=== PATIENT | female | born 1945 | race Caucasian/White ===

== ENCOUNTER 2017-03-30 12:43 | Outpatient (CLI) ==
[2016-04-08 13:01] VITALS: BMI 29.9
--- NOTE | 2017-03-30 13:11 | CT ---
EXAM: CT left knee without contrast. HISTORY: Left knee osteoarthritis. Left knee pain. COMPARISON: Radiograph 04/08/2016. TECHNIQUE: Multiple axial images of the left knee were obtained without intravenous contrast. Image s were reformatted in the sagittal and coronal planes. FINDINGS: Bone mineralization is normal. No fracture or dislocation identified. Mild tricompartmen jamie joint marginal osteophyte formation noted with mild medial and patellofemoral compartment joint s pace narrowing. No erosive changes are seen. Chondrocalcinosis noted in the knee joint. There is a small amount of fluid in the knee joint with some peripheral calcifications present. Atheroscleroti c calcifications are present. No localized soft tissue abnormality is seen. IMPRESSION: 1. Mild osteoarthritis. 2. Small joint effusion. 3. Chondrocalcinosis.
== END 2017-03-30 12:44 | disposition home or self-care (01) ==
LOC: RAD 12:43
PROVIDERS: ATTEND Emergency Medicine
DX: M17.12 Unilateral primary osteoarthritis, left knee (principal)

== ENCOUNTER 2017-04-13 08:03 | Outpatient (CLI) ==
[2016-04-08 13:01] VITALS: BMI 29.9
--- NOTE | 2017-04-13 11:50 | MAMMO ---
EXAM: Digital screening mammogram with tomosynthesis HISTORY: Screening COMPARISON: 04/26/2015 FINDINGS: Digital MLO and CC views of the right and left breast were performed. Tomosynthesis was performed. Computer aided detection was utilized. There are scattered fibroglandular densities. Th ere is no evidence for mass, asymmetry, distortion, or suspicious calcifications in either breast. IMPRESSION: 1. No evidence of malignancy in the right or left breast. 2. Annual screening mammogram is recommended in one year. BIRADS category 1, negative examination
== END 2017-04-13 08:04 | disposition home or self-care (01) ==
LOC: RAD 08:03
PROVIDERS: ATTEND Emergency Medicine
DX: Z12.31 Encounter for screening mammogram for malignant neoplasm of breast (principal); E78.5 Hyperlipidemia, unspecified; F32.9 Major depressive disorder, single episode, unspecified; J44.9 Chronic obstructive pulmonary disease, unspecified
CPT/HCPCS: 36415; 77067; 80053; 80061; 84443; 85025

== ENCOUNTER 2017-05-31 11:00 | Outpatient (RCR) ==
[2016-04-08 13:01] VITALS: BMI 29.9
--- NOTE | 2017-05-24 13:20 | RS.OPPTEV2 ---
Date of Note: 05/23/17 Visit #: 1 Date of Evaluation: 05/23/17 Payer Source: MEDICARE Treatment Diagnosis: Left knee pain History of Condition/Mechanism of Injury:: Patient reports progressive left knee pain. Prior Level of Function.....Patient was independent with: ADL's, Self Care, Work /Vocation, Caregiving, Ambulation/Mobility, Community Integration/Access Functional Limitations: ADL's, Standing, Squatting, Ambulation, Community Access /Integration Current Subjective/complaints:: Patient reports left knee pain. Reports swelling in the left knee, which limits her ROM. States she received an injection in the knee recently and she has not felt much benefit at this time. States she has had to change the way she does things because of her left knee limitation. She now takes showers, because she cannot get in and out of a bath tub. Reports difficulty ascending/descending stairs. She was diagnosed with RA several years ago. States she is hoping to work out at [employer] in town, but is uneasy about what activities she should avoid. Treatment Side (optional): Left Medical History Medical History: Arthritis (knees, back, right hip) Medical History Comments:: Rheumatoid Arthritis, emphysema Smoking Status: Former smoker Hx Home Medications: Lipitor, wellbutrin, Patient's Goals: Her goal is to get relief of left knee pain. Pain Assessment - Pain Description Pain Location: left knee joint Current Pain Intensity: 5/10 Worst Pain Intensity: 10/10 Functional Outcome Measure LE Functional Scale: 41 (41/80=48.75% impairment) - G Codes & Severity Modifier G Codes & Modifier: MOb current CK. MOb goal CI Source of G Code score: LE functional scale Observation - Observation Inspection: Left knee presents to be swollen upon observation, compared to the right knee. Standing without shoes demonstrates moderate arch bilaterally and normal knee alignment. Girth Measurement Lower: Superior pole of patella: left 18 3/4 cm, right 18 cm Gait - Gait Pattern Gait Comments: Patient ambulates without an assistive device, with decreased stance on the left LE. Demonstrates decreased knee flexion during swing phase. - Left Knee ROM Left Knee Extension: -3 degrees from full extension Left Knee Flexion: 99 (degrees AROM) Knee ROM Limitations: Soft Tissue Tightness - Right Knee ROM Right Knee Extension: full extension Right Knee Flexion: 135 (degrees AROM) - Left Knee Strength Left Knee Extension: 4- Good- Left Knee Flexion: 4- Good- Comments: Left hip strength 4 to 4+/5 throughout. - Right Knee Strength Right Knee Extension: 5 Normal Right Knee Flexion: 5 Normal Comments: Right hip 4+ to 5/5 throughout. - Special Tests Knee Anterior Drawer Test: Negative Left, Negative Right Knee Posterior Drawer Test: Negative Left, Negative Right Knee Valgus Stress Test: Negative Left, Negative Right Knee Varus Stress Test: Negative Left, Negative Right Sensation - Sensation Right Lower Extremity: Intact/Normal Left Lower Extremity: Intact/Normal Additional Comments: Additional Comments: Right SLR to 50-55 degrees, Left SLR to 40-45 degrees in supine. Interventions - Exercise/Activities/Manual Therapy Exercises/Activities: Patient instructed in exercises for home: HS stretch in supine and in standing, SLR, SAQ's, and Standing HS curls. Discussed activites to avoid, such as twisting with the foot planted, Total minutes of Exercise: 10 mins Manual Therapy: Na HOME EXERCISE PROGRAM: HS stretch in supine and in standing, SLR, SAQ's, and Standing HS curls. - Charges Timed Code Treatment Minutes: 10 mins Total Treatment Time: 50 mins Procedures billed for this date of service:: EVAL Low EVALUATION COMPLEXITY LEVEL EVALUATION COMPLEXITY LEVEL: HISTORY: Low (no prior knee surgery), EXAM OF BODY SYSTEMS: Low (LE ROM and strength), CLINICAL PRESENTATION: Low, CLINICAL DECISION MAKING: Low Assessment Assessment: Patient presents to therapy with a diagnosis of left knee pain. She exhibits limited left knee ROM and weakness of the hip and knee musculature. She reports limited activities with ambulation and ADL's due to knee pain and joint restriction. She demonstrates potential to gain functional left knee AROM and strength to tolerate activities with minimal left knee discomfort. Patient Education: Education of diagnosis, Body/Joint mechanics, Home Exercise Program, Home Safety, Activity Modification, Education of Plan of Care Rehab Potential: Good Short Term Goals Goal #1: Pt compliant with HEP. Goal to be met by: 06/03/17 Goal #2: Left knee AROM 0 to 120 degrees flexion. Goal to be met by: 06/07/17 Goal #3: Left quad strength increased to 4+/5. Goal to be met by: 06/07/17 Escort Blind Goals Goal #1: Pt independent in HEP and knows to cont. ex's following D/C. Goal to be met by: 06/13/17 Goal #2: Pt able to perform daily activities with minimal knee pain. Goal to be met by: 06/13/17 Goal #3: Pt to demo. understanding of activities to avoid to protect left knee joint Goal to be met by: 06/13/17 Plan - Treatment to be Provided Procedures: Therapeutic Exercises, Therapeutic Activity, Patient Education Modalities: Cryotherapy, Hot Packs - Treatment Plan Frequency: 2 X week Duration: 2 weeks ORDER # VISITS AND/OR THROUGH DATE: 06/13/17 - Treatment Code (1) Knee pain Code(s): M25.569 - PAIN IN UNSPECIFIED KNEE Qualifiers: Chronicity: unspecified Laterality: left Qualified Code(s): M25.562 - Pain in left knee (2) Knee stiffness Qualifiers: Laterality: left Qualified Code(s): M25.662 - Stiffness of left knee, not elsewhere classified
--- NOTE | 2017-05-25 11:54 | RS.OPPTDN ---
Subjective Date of Note: 05/25/17 Visit #: 2 Date of Evaluation: 05/23/17 Payer Source: MEDICARE Treatment Diagnosis: Left knee pain Current Subjective/complaints:: Patient reports she is walking better today. States she is workingon initial HEP as instructed. Pain Assessment - Pain Description Current Pain Intensity: mod Interventions - Exercise/Activities/Manual Therapy Exercises/Activities: Assisted HS stretch and left knee flexion in supine. SLR, SLR/VMO, SAQ's, quad sets, and ham sets. Isometric hip add with ball, with feet in neutral and feet wide for increased IR. Isometric ankle inversion with quad sets. Yellow theraband for ham curl. In sitting, passive knee flexion, isometric ham set, and yellow theraband for ham curl. Began leg press with 30# and limited range. Elliptical 1 minute for safety instruction. Back to mat table for additonal hamstring stretching. Patient education of dx, joint mechanics, safety and progression of HEP. Patient given copy of new exercises. Total minutes of Exercise: 40mins Manual Therapy: Na HOME EXERCISE PROGRAM: HS stretch in supine and in standing, SLR, SAQ's, and Standing HS curls. Quad sets, isometric hip add and isometric ankle inversion, both with ball. - Objective Findings Observations,measurements,etc.: No gait deviation noted today. - Charges Timed Code Treatment Minutes: 40mins Total Treatment Time: 42mins Procedures billed for this date of service:: EX3 Assessment: Patient motivated to work on HEP. Demos improvement in gait today. Patient Education: Education of diagnosis, Body/Joint mechanics, Home Exercise Program, Home Safety, Activity Modification Patient demonstrates compliance with HEP?: Yes Short Term Goals Goal #1: Pt compliant with HEP. Goal to be met by: 06/03/17 Progress towards Goal:: Progressing Goal #2: Left knee AROM 0 to 120 degrees flexion. Goal to be met by: 06/07/17 Progress towards Goal:: Progressing Goal #3: Left quad strength increased to 4+/5. Goal to be met by: 06/07/17 Progress towards Goal:: Progressing Lettuce Trimmer Goals Goal #1: Pt independent in HEP and knows to cont. ex's following D/C. Goal to be met by: 06/13/17 Goal #2: Pt able to perform daily activities with minimal knee pain. Goal to be met by: 06/13/17 Goal #3: Pt to demo. understanding of activities to avoid to protect left knee joint Goal to be met by: 06/13/17 Plan PLAN OF CARE EXPIRES ON:: 06/13/17 ORDER # VISITS AND/OR THROUGH DATE: 06/13/17 PLAN: Progress exercise to increase ROM, strength, and functional activity level.
--- NOTE | 2017-05-29 12:08 | RS.OPPTDN ---
Subjective Date of Note: 05/29/17 Visit #: 3 Date of Evaluation: 05/23/17 Payer Source: MEDICARE Treatment Diagnosis: Left knee pain Current Subjective/complaints:: Patient reports less swelling in the left knee today. States she is working on HEP as instructed. States she is planning on starting back to the gym 3 days per week. Agrees to work on low impact activities. Pain Assessment - Pain Description Pain Location: Left knee Pain Description: Aching Current Pain Intensity: mild Interventions - Exercise/Activities/Manual Therapy Exercises/Activities: Assisted HS stretch and left knee flexion in supine. Added 2# to SLR and SAQ's. SLR/VMO no weights. Quad sets, and ham sets. Isometric hip add with ball, with feet in neutral and feet wide for increased IR. Isometric ankle inversion with quad sets. Yellow theraband for ham curl, ankle df, hip add and hip abd with full knee extension. In sitting, passive knee flexion, isometric ham set, and yellow theraband for ham curl, 3s/10reps. Increased leg press to 45# and limited range. Ended with 7 mins stationary bike. Discussed patient education of joint mechanics, safety and progression of HEP. Total minutes of Exercise: 38mins/45mins Manual Therapy: Na HOME EXERCISE PROGRAM: HS stretch in supine and in standing, SLR, SAQ's, and Standing HS curls. Quad sets, isometric hip add and isometric ankle inversion, both with ball. - Objective Findings Observations,measurements,etc.: Demos good gait pattern without deviation noted. - Charges Timed Code Treatment Minutes: 38mins Total Treatment Time: 45mins Procedures billed for this date of service:: EX3 Assessment: Patient progressing with strengthening exericse and planning to return to modified workouts at gym. Patient Education: Body/Joint mechanics, Home Exercise Program, Home Safety, Activity Modification Patient demonstrates compliance with HEP?: Yes Short Term Goals Goal #1: Pt compliant with HEP. Goal to be met by: 06/03/17 Progress towards Goal:: Met Goal #2: Left knee AROM 0 to 120 degrees flexion. Goal to be met by: 06/07/17 Progress towards Goal:: Partially Met Comments:: Passive flexion to 120 degrees, Active extension to neutral. Goal #3: Left quad strength increased to 4+/5. Goal to be met by: 06/07/17 Progress towards Goal:: Partially Met Agriculture Intern Goals Goal #1: Pt independent in HEP and knows to cont. ex's following D/C. Goal to be met by: 06/13/17 Progress towards goal: Progressing Goal #2: Pt able to perform daily activities with minimal knee pain. Goal to be met by: 06/13/17 Progress towards goal: Progressing Goal #3: Pt to demo. understanding of activities to avoid to protect left knee joint Goal to be met by: 06/13/17 Progress towards goal: Progressing Plan PLAN OF CARE EXPIRES ON:: 06/13/17 ORDER # VISITS AND/OR THROUGH DATE: 06/13/17 PLAN: Progress exericse to increase patients functional activity level.
--- NOTE | 2017-05-31 11:56 | RS.OPPTDN ---
Subjective Date of Note: 05/31/17 Visit #: 4 Date of Evaluation: 05/23/17 Payer Source: MEDICARE Treatment Diagnosis: Left knee pain Current Subjective/complaints:: Patient reports she feels stronger and will be able to continue HEP. Reports some joint tightness and feels mild swelling continues due to weather changes. Pain Assessment - Pain Description Pain Location: Left knee Current Pain Intensity: mild Interventions - Exercise/Activities/Manual Therapy Exercises/Activities: Assisted HS stretch and left knee flexion in supine. Added 2# to SLR. Witheld SAQ's to avoid aggravating knee. SLR/VMO added 1#. Quad sets, and ham sets. Isometric hip add with ball, with feet in neutral and feet wide for increased IR. Isometric ankle inversion with quad sets. Increased to red theraband for ham curl, ankle df, hip add and hip abd with full knee extension. In sitting, passive knee flexion, isometric ham set, and red theraband for ham curl, 3s/10reps. Discussed patient education of joint mechanics, safety and progression of HEP. Also reviewed safety with activity upon returning to gym. Total minutes of Exercise: 30mins Manual Therapy: Na HOME EXERCISE PROGRAM: HS stretch in supine and in standing, SLR, SAQ's, and Standing HS curls. Quad sets, isometric hip add and isometric ankle inversion, both with ball. - Objective Findings Observations,measurements,etc.: Left knee flexion 130 degrees and extension to neutral. - Charges Timed Code Treatment Minutes: 30mins Total Treatment Time: 35mins Procedures billed for this date of service:: EX2 Assessment: Patient has progressed well and met all treatment goals. She is independent with HEP and is motivated to continue and return to light activity at gym. Patient Education: Education of diagnosis, Body/Joint mechanics, Home Exercise Program, Home Safety, Activity Modification, Education of Plan of Care Comments: Finalized all patient eudcation of dx, mechanics, safety, and HEP. Patient demonstrates compliance with HEP?: Yes Short Term Goals Goal #1: Pt compliant with HEP. Goal to be met by: 06/03/17 Progress towards Goal:: Met Goal #2: Left knee AROM 0 to 120 degrees flexion. Goal to be met by: 06/07/17 Progress towards Goal:: Met Goal #3: Left quad strength increased to 4+/5. Goal to be met by: 06/07/17 Progress towards Goal:: Met Mcfp Goals Goal #1: Pt independent in HEP and knows to cont. ex's following D/C. Goal to be met by: 06/13/17 Progress towards goal: Met Goal #2: Pt able to perform daily activities with minimal knee pain. Goal to be met by: 06/13/17 Progress towards goal: Met Goal #3: Pt to demo. understanding of activities to avoid to protect left knee joint Goal to be met by: 06/13/17 Progress towards goal: Met Plan PLAN OF CARE EXPIRES ON:: 06/13/17 ORDER # VISITS AND/OR THROUGH DATE: 06/13/17 PLAN: Discharge with HEP as patient has completed POC.
== END 2017-06-06 ==
PROVIDERS: ATTEND Orthopaedic Surgery
DX: M25.562 Pain in left knee (principal)

== ENCOUNTER 2017-07-25 11:00 | Outpatient (CLI) ==
[2017-04-13 08:11] VITALS: BMI 29.9
== END 2017-07-25 11:01 | disposition home or self-care (01) ==
LOC: RHC-LAB 11:00
PROVIDERS: ATTEND Emergency Medicine
DX: E78.5 Hyperlipidemia, unspecified (principal); F32.9 Major depressive disorder, single episode, unspecified; J44.9 Chronic obstructive pulmonary disease, unspecified
CPT/HCPCS: 36415; 80053; 80061; 84443; 85025

== ENCOUNTER 2017-08-20 17:49 | Emergency (ER) ==
[2017-08-20 17:54] VITALS: BP 157/88; TEMP 98.7; BMI 30.1
[2017-08-20] MEDS ORDERED: DECADRON 4 MG/ML SDV IM STA (19:42)
[2017-08-20] MEDS ORDERED: BENADRYL IM STA (19:42)
--- NOTE | 2017-08-20 19:44 | ED.PDOC ---
General ED Provider: Dr. GHAZAL HAMILTON Chief Complaint: Rash Stated Complaint: Patient been having rash , all over the body, for 3 weeks, they come and go. now started hurting right heel. no injury Time Seen by Physician: 19:43 Mode of Arrival: Walk-In Information Source: Patient Primary Care Provider: GHAZAL HAMILTON[facility] Nursing and Triage Documentation Reviewed and Agree: Yes Reviewed sepsis parameters & appropriate labs ordered?: No System Inflammatory Response Syndrome: Not Applicable Sepsis Protocol: For patient's 13 years and over: Temp is 96.8 and below OR 101 and greater Pulse >90 BPM Resp >20/minute Acutely Altered Mental Status Are patient's symptoms suggestive of a new infection, such as: -Pneumonia -Skin, Soft Tissue -Endocarditis -UTI -Bone, Joint Infection -Implantable Device -Acute Abdominal Infection -Wound Infection -Meningitis -Blood Stream Catheter Infection -Unknown Skin Complaint Exam - Skin Rash/Itching Complaint/Exam Symptoms Are: Still present Initial Severity: Mild Current Severity: Mild Potential Exposures: Reports: Other Aggravating: Reports: None Alleviating: Reports: None Associated Signs and Symptoms: Denies: Difficulty breathing, Fever, Chills Skin Findings: Present: Lesions Differential Diagnoses: Allergic Reaction Review of Systems - Review Of Systems Constitutional: Reports: No symptoms Eyes: Reports: No symptoms Ears, Nose, Mouth, Throat: Reports: No symptoms Respiratory: Reports: No symptoms Cardiac: Reports: No symptoms GI: Reports: No symptoms : Reports: No symptoms Musculoskeletal: Reports: No symptoms Skin: Reports: Rash Neurological: Reports: No symptoms Endocrine: Reports: No symptoms Hematologic/Lymphatic: Reports: No symptoms All Other Systems: Reviewed and Negative Past Medical History - Past Medical History Previously Healthy: Yes Endocrine: Reports: None Cardiovascular: Reports: None Respiratory: Reports: None Hematological: Reports: None Gastrointestinal: Reports: None Genitourinary: Reports: UTI Neuro/Psych: Reports: Depression Musculoskeletal: Reports: None Cancer: Reports: None Last Menstrual Period: none - Surgical History General Surgical History: Reports: None - Family History Family History: Reports: None - Social History Smoking Status: Former smoker Hx Substance Use: No Alcohol Screening: Occasionally Physical Exam - Physical Exam Appearance: Well-appearing, No pain distress, Well-nourished Eyes: JANINA, EOMI, Conjunctiva clear ENT: Ears normal, Nose normal, Oropharynx normal Respiratory: Airway patent, Breath sounds clear, Breath sounds equal, Respirations nonlabored Cardiovascular: RRR, Pulses normal, No rub, No murmur GI/: Soft, Nontender, No masses, Bowel sounds normal, No Organomegaly Musculoskeletal: Normal strength (rt heel is tender.), ROM intact, No edema, No calf tenderness Skin: Warm, Dry, Normal color Neurological: Sensation intact, Motor intact, Reflexes intact, Cranial nerves intact, Alert, Oriented Psychiatric: Affect appropriate, Mood appropriate Interpretation - Radiology Interpretation Radiology Interpretation By: ED Physician Radiology Results: Negative Critical Care Note - Critical Care Note Total Time (mins): 20 Course - Course Hematology/Chemistry: 08/20/17 19:50 08/20/17 19:50 Orders, Labs, Meds: Lab Review 08/20/17 08/20/17 19:50 19:50 WBC 10.56 H RBC 4.33 Hgb 13.0 Hct 39.0 MCV 90.1 MCH 30.0 MCHC 33.3 RDW Coeff of [place] 13.6 Plt Count 290 Immature Gran % (Auto) 0.2 Neut % (Auto) 47.7 Lymph % (Auto) 40.2 [place] % (Auto) 6.2 Eos % (Auto) 5.1 Baso % (Auto) 0.6 Immature Gran # (Auto) 0.0 Neut # (Auto) 5.1 Lymph # (Auto) 4.2 H [place] # (Auto) 0.7 Eos # (Auto) 0.5 Baso # (Auto) 0.1 Sodium 140 Potassium 4.3 Chloride 108 H Carbon Dioxide 22 L Anion Gap 14.3 BUN 16 Creatinine 1.05 Estimated GFR (MDRD) 52.00 BUN/Creatinine Ratio 15.23 Glucose 90 Calcium 9.3 Total Bilirubin 0.2 AST 23 ALT 29 Alkaline Phosphatase 104 Total Protein 7.0 Albumin 3.4 Globulin 3.6 Albumin/Globulin Ratio 0.94 Orders Category Date Time Status CBC W/ AUTO DIFF Stat LAB 08/20/17 19:50 Completed CMP [COMPREHENSIVE METABOLIC PANEL] Stat LAB 08/20/17 19:50 Completed Dexamethasone 4 mg/ml Inj [Decadron 4 mg/ml Sdv] MEDS 08/20/17 19:42 Discontinued 4 mg IM ONCE STA Diphenhydramine Inj [Benadryl] MEDS 08/20/17 19:42 Discontinued 25 mg IM ONCE STA FOOT, RIGHT 3 VIEWS Stat RADS 08/20/17 19:37 Taken Medications Discontinued Medications Generic Name Dose Route Start Last Admin Trade Name Nghia PRN Reason Stop Dose Admin Dexamethasone Sodium Phosphate 4 mg 08/20/17 19:42 08/20/17 20:12 Decadron 4 Mg/Ml Sdv IM 08/20/17 19:43 4 mg ONCE STA Administration Diphenhydramine HCl 25 mg 08/20/17 19:42 08/20/17 20:11 Benadryl IM 08/20/17 19:43 25 mg ONCE STA Administration Vital Signs: Temp Pulse Resp BP Pulse Ox 08/20/17 17:49 98.7 F 103 H 16 157/88 H 96 Departure - Departure Time of Disposition: 20:52 Disposition: HOME SELF-CARE Discharge Problem: Pruritic rash Heel spur Qualifiers: Laterality: right Qualified Code(s): M77.31 - Calcaneal spur, right foot Instructions: Dermatitis (ED) Condition: Stable Pt referred to PMD for follow-up: Yes IPMP verified?: No Additional Instructions: Take medication with food Increase Hydration Tylenol prn Prescriptions: Clindamycin HCl 300 mg PO TID #15 capsule Hydroxyzine HCl [Atarax] 25 mg PO BID #30 tab Prednisone 10 mg PO BIDWM #14 tablet Allergies/Adverse Reactions: Allergies codeine Adverse Reaction (Verified 08/20/17 17:57) diazepam [From Valium] Adverse Reaction (Verified 08/20/17 17:57) hydrocodone bitartrate [From Lortab] Adverse Reaction (Verified 08/20/17 17:57) Home Medications: Ambulatory Orders Calcium Carbonate/Vitamin D3 [Calcium 600 + Vit D 400 Softgl] 1 cap PO DAILY Albuterol Sulfate [Proair Hfa] 8.5 gm IH DIRECTED PRN 11/18/15 Potassium Gluconate [Potassium] 99 mg PO d 03/28/17 Azelastine HCl [Astelin 0.1%] 1 spray NS BID 08/20/17 Clindamycin HCl 300 mg PO TID #15 capsule 08/20/17 Hydroxyzine HCl [Atarax] 25 mg PO BID #30 tab 08/20/17 Prednisone 10 mg PO BIDWM #14 tablet 08/20/17 Disposition Discussed With: Patient
--- NOTE | 2017-08-21 07:41 | DI ---
EXAM: Three views of the right foot HISTORY: Pain. COMPARISON: None FINDINGS: There is mild degenerative change of the first MTP joint. There is minimal degenerative ch slime of the IP joint of the great toe. There is mild narrowing and degenerative change in the midfoo t. The arch is maintained. Small calcaneal spurs are present. The soft tissues are unremarkable. IMPRESSION: 1. No acute abnormality or displaced fracture of the right foot. 2. Scattered degenerative disease of the right foot.
== END 2017-08-20 21:15 | disposition home or self-care (01) ==
LOC: ED 17:49
DX: R22.1 Localized swelling, mass and lump, neck (principal); L29.9 Pruritus, unspecified; M77.31 Calcaneal spur, right foot
CPT/HCPCS: 36415; 80053; 85025; 96372; 99283

== ENCOUNTER 2017-11-21 10:50 | Outpatient (CLI) | END 2017-11-21 10:51 | disposition home or self-care (01) | LOC: RHC-LAB 10:50 | PROVIDERS: ATTEND Emergency Medicine | DX: F32.9 Major depressive disorder, single episode, unspecified (principal); E78.5 Hyperlipidemia, unspecified; J44.9 Chronic obstructive pulmonary disease, unspecified; Z78.0 Asymptomatic menopausal state | CPT/HCPCS: 36415; 80053; 80061; 84443; 85025 ==

== ENCOUNTER 2017-11-27 10:44 | Outpatient (CLI) ==
--- NOTE | 2017-11-27 11:58 | DEXA ---
EXAM: Bone densitometry. History: Asymptomatic menopausal state. Findings: Evaluation of the lumbar spine reveals a total bone mineral density of 1.213 grams per centimeter squ ared with T-score of 0.3. Evaluation of the left hip reveals a total bone mineral density of 0.896 grams per centimeter squared with T-score of negative 0.9. Evaluation of the right hip reveals a total bone mineral density of 0.909 grams per centimeter square d with T-score of negative 0.8. Impression: Normal bone mineral density of the lumbar spine and bilateral hips
== END 2017-11-27 10:45 | disposition home or self-care (01) ==
LOC: RAD 10:44
PROVIDERS: ATTEND Emergency Medicine
DX: Z78.0 Asymptomatic menopausal state (principal)

== ENCOUNTER 2018-01-17 10:00 | Emergency (ER) ==
[2018-01-17 10:14] VITALS: BP 172/89; TEMP 69.9; BMI 28.9
--- NOTE | 2018-01-17 10:51 | CT ---
EXAM: CT of the head without contrast History: Dizziness. Technique: Multiplanar CT images through the head were obtained without the administration of IV con trast Findings: The visualized paranasal sinuses and mastoid air cells are clear in general. No acute kaiden varial abnormality. Intracranially the ventricular and cisternal spaces are normal in size, shape and configuration for a patient of this age. No dominant mass or midline shift. No hydrocephalous. No acute intracranial hemorrhage or abnormal extraaxial fluid collections. Impression: No acute intracranial process
--- NOTE | 2018-01-17 11:40 | ED.PDOC ---
General ED Provider: Dr. AKASH LOFTON Chief Complaint: Dizziness Stated Complaint: dizziness Time Seen by Physician: 10:00 Mode of Arrival: Walk-In Information Source: Patient Exam Limitations: No limitations Primary Care Provider: DILEEP GRAHAM Nursing and Triage Documentation Reviewed and Agree: Yes Does patient meet sepsis criteria?: No System Inflammatory Response Syndrome: Not Applicable Sepsis Protocol: For patient's 13 years and over: Temp is 96.8 and below OR 101 and greater Pulse >90 BPM Resp >20/minute Acutely Altered Mental Status Are patient's symptoms suggestive of a new infection, such as: -Pneumonia -Skin, Soft Tissue -Endocarditis -UTI -Bone, Joint Infection -Implantable Device -Acute Abdominal Infection -Wound Infection -Meningitis -Blood Stream Catheter Infection -Unknown Neurological Complaint Exam - Dizziness Complaint/Exam Last Known Well: 2 days Onset: Gradual Duration: minutes Symptoms Are: Resolved Timing: Intermittent Episodes Lasting: Minutes Initial Severity: Mild Current Severity: None Character: Reports: Lightheaded Aggravating: Reports: None Alleviating: Reports: None Associated Signs and Symptoms: Denies: Nausea, Vomiting, Diaphoresis, Tinnitus, Chest pain, Short of air, Palpitations, Unsteady gait, GI blood loss, Visual changes, Decreased oral intake, Change in medication, Change in diet, OTC meds, Loss of balance Cardiac Risk Factors: Reports: None CVA Risk Factors: Reports: None JVD Present: No Carotid Bruit Present: No Rectal Heme Positive: No Glascow Coma Scale (see protocol): 15 Nystagmus Present: No Gag Reflex Present: Yes Meningeal Signs Positive: No Focal Weakness: Present: None Focal Sensory Loss: Present: None Gait: Normal Differential Diagnoses: Dysrhythmia, Metabolic abnormalities Quality Indicators for Cardiac Chest Pain: EKG in 10min. Quality Indicators for AMI: EKG in 10min. Quality Indicator For Non-Traumatic Chest Pain/Syncope: EKG Performed Review of Systems - Review Of Systems Constitutional: Reports: No symptoms Eyes: Reports: No symptoms Ears, Nose, Mouth, Throat: Reports: No symptoms Respiratory: Reports: No symptoms Cardiac: Reports: No symptoms GI: Reports: No symptoms : Reports: No symptoms Musculoskeletal: Reports: No symptoms Skin: Reports: No symptoms Neurological: Reports: Other (dizziness) Endocrine: Reports: No symptoms Hematologic/Lymphatic: Reports: No symptoms All Other Systems: Reviewed and Negative Past Medical History - Past Medical History Previously Healthy: Yes Endocrine: Reports: None Cardiovascular: Reports: None Respiratory: Reports: None Hematological: Reports: None Gastrointestinal: Reports: None Genitourinary: Reports: UTI Neuro/Psych: Reports: Depression Musculoskeletal: Reports: None Cancer: Reports: None Last Menstrual Period: hysterectomy - Surgical History General Surgical History: Reports: None - Family History Family History: Reports: None - Social History Smoking Status: Former smoker Hx Substance Use: No Alcohol Screening: Occasionally Physical Exam - Physical Exam Appearance: Well-appearing, No pain distress, Well-nourished Eyes: JANINA, EOMI, Conjunctiva clear ENT: Ears normal, Nose normal, Oropharynx normal Respiratory: Airway patent, Breath sounds clear, Breath sounds equal, Respirations nonlabored Cardiovascular: RRR, Pulses normal, No rub, No murmur GI/: Soft, Nontender, No masses, Bowel sounds normal, No Organomegaly Musculoskeletal: Normal strength, ROM intact, No edema, No calf tenderness Skin: Warm, Dry, Normal color Neurological: Sensation intact, Motor intact, Reflexes intact, Cranial nerves intact, Alert, Oriented Psychiatric: Affect appropriate, Mood appropriate Interpretation - Radiology Interpretation Radiology Interpretation By: Radiologist Radiology Results: No acute changes - Financial Reporting Specialist Rate: Normal Rhythm: Sinus Ectopy: None - EKG Interpretation Rate: Normal Rhythm: Sinus Ectopy: None [place]: NL ST Segment: Normal Critical Care Note - Critical Care Note Total Time (mins): 0 Course - Course Hematology/Chemistry: 01/17/18 10:35 01/17/18 10:35 Orders, Labs, Meds: Lab Review 01/17/18 01/17/18 10:35 10:35 WBC 8.37 RBC 4.26 Hgb 12.6 Hct 38.1 MCV 89.4 MCH 29.6 MCHC 33.1 RDW Coeff of [place] 13.5 Plt Count 274 Immature Gran % (Auto) 0.2 Neut % (Auto) 56.6 Lymph % (Auto) 34.9 [place] % (Auto) 5.1 Eos % (Auto) 2.6 Baso % (Auto) 0.6 Immature Gran # (Auto) 0.0 Neut # (Auto) 4.7 Lymph # (Auto) 2.9 [place] # (Auto) 0.4 Eos # (Auto) 0.2 Baso # (Auto) 0.1 Sodium 138.3 Potassium 4.08 Chloride 108.0 H Carbon Dioxide 25.3 Anion Gap 9.08 BUN 17.6 H Creatinine 0.91 Estimated GFR (MDRD) 61.00 BUN/Creatinine Ratio 19.34 Glucose 92.1 Calcium 9.36 Total Bilirubin 0.30 AST 27.0 ALT 18.1 Alkaline Phosphatase 96.5 Total Protein 6.98 Albumin 3.95 Globulin 3.03 Albumin/Globulin Ratio 1.30 Orders Category Date Time Status EKG-(ED ONLY) Stat CARDIO 01/17/18 10:19 Completed CBC W/ AUTO DIFF Stat LAB 01/17/18 10:35 Completed COMPREHENSIVE METABOLIC PANEL Stat LAB 01/17/18 10:[address] HEAD W/O CONTRAST Stat RADS 01/17/18 10:19 Completed Vital Signs: Temp Pulse Resp BP Pulse Ox 01/17/18 10:01 69.9 F L 70 20 172/89 H 95 Departure - Departure Time of Disposition: 11:41 Disposition: HOME SELF-CARE Discharge Problem: Dizziness Instructions: Dizziness (ED), Lightheadedness (ED) Condition: Good Pt referred to PMD for follow-up: Yes IPMP verified?: No Additional Instructions: Please call your Family Physician as soon as possible to schedule a follow-up appointment. Allergies/Adverse Reactions: Allergies codeine Adverse Reaction (Verified 01/17/18 10:10) diazepam [From Valium] Adverse Reaction (Verified 01/17/18 10:10) hydrocodone bitartrate [From Lortab] Adverse Reaction (Verified 01/17/18 10:10) Home Medications: Ambulatory Orders Calcium Carbonate/Vitamin D3 [Calcium 600 + Vit D 400 Softgl] 1 cap PO DAILY Potassium Gluconate [Potassium] 99 mg PO d 03/28/17 Bupropion HCl [Wellbutrin Sr] 150 mg PO DAILY 11/21/17 Umeclidinium Brm/Vilanterol Tr [Anoro Ellipta 62.5-25 Mcg INH] 1 each IH DAILY 01/17/18 Disposition Discussed With: Patient
== END 2018-01-17 11:48 | disposition home or self-care (01) ==
LOC: ED 10:00
DX: R42 Dizziness and giddiness (principal)
CPT/HCPCS: 36415; 80053; 85025; 93005; 93010; 99283

== ENCOUNTER 2018-05-14 12:14 | Outpatient (CLI) | END 2018-05-14 12:15 | disposition home or self-care (01) | LOC: LAB 12:14 | PROVIDERS: ATTEND Nurse Practitioner Family | DX: R25.2 Cramp and spasm (principal); R61 Generalized hyperhidrosis | CPT/HCPCS: 36415; 80053; 82672; 83001; 83002 ==

== ENCOUNTER 2018-05-21 17:19 | Outpatient (CLI) | END 2018-05-21 17:20 | disposition home or self-care (01) | LOC: LAB 17:19 | PROVIDERS: ATTEND Nurse Practitioner Family | DX: R74.8 Abnormal levels of other serum enzymes (principal); R74.0 Nonspecific elevation of levels of transaminase and lactic acid dehydrogenase [LDH]; R10.13 Epigastric pain | CPT/HCPCS: 36415; 80074; 82977; 84075; 84080; 86038; 86430; 86708; 86803; 87340; 87522 ==

== ENCOUNTER 2018-05-30 07:51 | Outpatient (CLI) ==
--- NOTE | 2018-05-30 09:08 | CT ---
EXAM: CT of the abdomen pelvis with and without contrast History: Elevated liver enzymes. Technique: Multiplanar CT images through the abdomen pelvis were obtained with and without the admin istration of IV contrast Findings: Subsegmental atelectasis seen within the lower lungs. No acute osseous abnormalities. Gr deborah 1 anterolisthesis of L4 on L5 measuring 6 mm. Atherosclerotic vascular calcifications. No discrete gallstones identified by CT. No renal stones a nd no hydronephrosis. No ureteral calculi. Bladder is low lying within the pelvis. Uterus is not s een and likely has been surgically removed. No renal masses. The liver and spleen are not enlarged. No focal liver or splenic lesions. The liver does not appear fatty. Pancreas is within normal tanner its. Adrenal glands are unremarkable. No bowel obstruction. No free air and no ascites. The appen kimi is normal. No perirectal inflammation. No pathologically enlarged lymph nodes. Impression: 1. No acute intra-abdominal or pelvic process. 2. No abnormality of the liver is detected by CT. 3. Bladder is low lying within the pelvis and there may be a cystocele. 4. Atherosclerotic vascular disease. 5. Grade 1 anterolisthesis of L4 on L5
== END 2018-05-30 07:52 | disposition home or self-care (01) ==
LOC: RAD 07:51
PROVIDERS: ATTEND Nurse Practitioner Family
DX: R74.8 Abnormal levels of other serum enzymes (principal)

== ENCOUNTER 2018-05-31 06:56 | Outpatient (CLI) ==
--- NOTE | 2018-05-31 12:16 | NM ---
Exam: Bone scintigraphy (whole-body). Date of exam: 05/31/2018 Radiopharmaceutical: 25.2 mCi Tc-99m HDP i.v. Reason for exam: Abnormal serum enzyme levels. Fracture of the right great toe. FINDINGS: Delayed whole-body scintigrams were obtained. No previous bone scan is available for denisa franks. The scintigraphic images were correlated with the following additional imaging studies: CT abdomen pe lvis performed 05/30/2018 Increased radiopharmaceutical uptake is seen in both shoulders, likely degenerative. Focal areas of increased radiopharmaceutical uptake are seen in the left posterior cervical facets and right and lef t lower lumbar spine. Facets likely degenerative. Increased radiopharmaceutical uptake is seen in b oth the left and right first metacarpal phalangeal joints, knees, and both great toes. Impression: 1. No suspicious appearing FDG uptake is seen. 2. Increased radiopharmaceutical uptake is seen in both shoulders, likely degenerative. If clinical concern exists, further evaluation could be performed. 3. Increased radiopharmaceutical uptake is seen in the right cervical facets and left and right lumb ar facets likely degenerative. 4. Focal radiotracer uptake in the knees and both metacarpal phalangeal joint spaces as well as the great toes and right ankle is likely degenerative
== END 2018-05-31 06:57 | disposition home or self-care (01) ==
LOC: RAD 06:56
PROVIDERS: ATTEND Nurse Practitioner Family
DX: R74.8 Abnormal levels of other serum enzymes (principal)